=== PATIENT | female | born 1965 | race Caucasian/White ===

== ENCOUNTER 2017-04-27 12:07 | Emergency (ER) | payer OTHER ==
[~2017-04-27] VITALS: Ht 154.9 cm; Wt 84.0 kg
[~2017-04-27 12:07] MED LIST: IBUP-1222 PO; LORA-445 PO; PANT20TA2 PO
[2017-04-27 12:18] VITALS: BP 156/98
== END 2017-04-27 13:15 | disposition home or self-care (01) ==
LOC: ED 12:40
DX: L25.9 Unspecified contact dermatitis, unspecified cause (principal)
CPT/HCPCS: 93005; 99283

== ENCOUNTER 2018-07-14 09:32 | Emergency (ER) | payer OTHER ==
[~2018-07-14] VITALS: Ht 157.5 cm; Wt 70.5 kg
[2018-07-14 09:38] VITALS: BP 131/89
== END 2018-07-14 11:35 | disposition home or self-care (01) ==
LOC: ED 10:17
DX: S60.221A Contusion of right hand, initial encounter (principal); K21.9 Gastro-esophageal reflux disease without esophagitis; J45.909 Unspecified asthma, uncomplicated; W01.0XXA Fall on same level from slipping, tripping and stumbling without subsequent striking against object, initial encounter; Y93.89 Activity, other specified; Y92.009 Unspecified place in unspecified non-institutional (private) residence as the place of occurrence of the external cause; Y99.8 Other external cause status
CPT/HCPCS: 99283

== ENCOUNTER 2021-02-21 10:45 | Emergency (ER) | payer MEDICARE, OTHER ==
[~2021-02-21] VITALS: Ht 157.5 cm; Wt 87.8 kg
[2021-02-21 10:58] VITALS: BP 138/75
--- NOTE | 2021-02-21 11:03 | NUR ---
poultry vaccinator: ice pack applied
--- NOTE | 2021-02-21 12:07 | NUR ---
Patient given discharge instructions and rx, they have confirmed that they understand the instructions. Patient ambulatory with steady gait.
== END 2021-02-21 12:08 | disposition home or self-care (01) ==
LOC: ED 12:02
DX: S93.492A Sprain of other ligament of left ankle, initial encounter (principal); M79.89 Other specified soft tissue disorders; J45.909 Unspecified asthma, uncomplicated; K21.9 Gastro-esophageal reflux disease without esophagitis; Z90.49 Acquired absence of other specified parts of digestive tract; X58.XXXA Exposure to other specified factors, initial encounter; Y93.89 Activity, other specified; Y92.89 Other specified places as the place of occurrence of the external cause; Y99.8 Other external cause status
CPT/HCPCS: 99283